=== PATIENT | male | born 1975 | race Caucasian/White ===

== ENCOUNTER 2022-04-09 14:44 | Outpatient (REF) | payer MEDICAID, SELFPAY ==
[2022-04-09 19:31] LABS: HCT 43.6 % (40.0-50.0); HGB 14.5 g/dL (13.5-17.5); MCH 28.8 pg (27.0-33.0); MCHC 33.3 % (32.0-36.0); MCV 87 fL (80-95); MPV 10.9 fL (8.0-11.0); Platelet Count 273 10^3/uL (130-400); RBC 5.04 10^6/uL (4.36-5.78); RDW 12.9 % (11.8-14.1); RDW-SD 40.8 fL; WBC 6.81 10^3/uL (4.4-10.8)
[2022-04-09 19:43] LABS: ALT 30 U/L (16-63); AST 20 U/L (15-37); Albumin 4.4 g/dL (3.4-5.0); Alkaline Phosphatase 68 U/L (46-116); Bilirubin, Direct 0.1 mg/dL (0.0-0.2); Bilirubin, Total 0.3 mg/dL (0.2-1.0); Total Protein 7.3 g/dL (6.4-8.2)
[2022-04-10 09:28] LABS: Hemoglobin A1C 5.8 % (<5.7)
== END 2022-04-09 14:45 | disposition home or self-care (01) ==
LOC: NCHCN 14:44
PROVIDERS: PCP Nurse Practitioner Family; Visit Provider Nurse Practitioner Family
DX: R10.11 Right upper quadrant pain (principal); K76.0 Fatty (change of) liver, not elsewhere classified; R73.09 Other abnormal glucose
CPT/HCPCS: 80076; 85027; 83036

== ENCOUNTER 2023-12-31 11:33 | Outpatient (REF) | payer MEDICAID, SELFPAY ==
[2023-12-31 14:49] LABS: HCT 44.5 % (40.0-50.0); HGB 14.5 g/dL (13.5-17.5); MCH 28.3 pg (27.0-33.0); MCHC 32.6 % (32.0-36.0); MCV 87 fL (80-95); MPV 10.3 fL (8.0-11.0); Platelet Count 245 10^3/uL (130-400); RBC 5.12 10^6/uL (4.36-5.78); RDW-SD 41.2 fL; WBC 6.01 10^3/uL (4.4-10.8)
[2023-12-31 15:11] LABS: Hemoglobin A1C 5.7 % (<5.7)
[2023-12-31 15:28] LABS: ALT 33 U/L (16-63); AST 21 U/L (15-37); Albumin 4.1 g/dL (3.4-5.0); Alkaline Phosphatase 70 U/L (46-116); Anion Gap 7.2 mmol/L (3-11); BUN 15 mg/dL (7-18); CO2 26.8 mmol/L (21.0-32.0); CREATININE 0.9 mg/dL (0.70-1.30); Calcium 8.9 mg/dL (8.5-10.1); Calculated LDL 162 mg/dL (<100); Chloride 108 mmol/L (98-107); Cholesterol 224 mg/dL (<200); Estimated GFR 106.01 (mL/min/1.73m2); Glucose 101 mg/dL (74-106); HDL Cholesterol 48 mg/dL (40-60); Potassium 4.2 mmol/L (3.5-5.1); Sodium 142 mmol/L (136-145); TSH 1.56 uIU/Ml (0.36-3.74); Total Protein 7.5 g/dL (6.4-8.2); Triglyceride 73 mg/dL (<150)
== END 2023-12-31 11:34 | disposition home or self-care (01) ==
LOC: NCHCN 11:33
PROVIDERS: PCP Nurse Practitioner Family; Visit Provider Family Medicine
DX: R73.03 Prediabetes (principal); K76.0 Fatty (change of) liver, not elsewhere classified; E78.5 Hyperlipidemia, unspecified; R61 Generalized hyperhidrosis
CPT/HCPCS: 80053; 80061; 85027; 83036; 84443

== ENCOUNTER 2024-12-31 08:39 | Outpatient (REF) | payer OTHER, MEDICAID, SELFPAY ==
[2024-12-31 16:10] LABS: Hemoglobin A1C 5.7 % (<5.7)
[2024-12-31 16:36] LABS: ALT 37 U/L (16-63); AST 22 U/L (15-37); Albumin 4.3 g/dL (3.4-5.0); Alkaline Phosphatase 72 U/L (46-116); Anion Gap 7.7 mmol/L (3-11); BUN 19 mg/dL (7-18); Bilirubin, Total 0.6 mg/dL (0.2-1.0); CO2 28.3 mmol/L (21.0-32.0); Calcium 9.2 mg/dL (8.5-10.1); Calculated LDL 161 mg/dL (<100); Chloride 106 mmol/L (98-107); Cholesterol 221 mg/dL (<200); Estimated GFR 92.84 (mL/min/1.73m2); Glucose 106 mg/dL (74-106); HDL Cholesterol 48 mg/dL (>or=40); Potassium 4.3 mmol/L (3.5-5.1); Sodium 142 mmol/L (136-145); Total Protein 7.3 g/dL (6.4-8.2); Triglyceride 63 mg/dL (<150)
== END 2024-12-31 08:40 | disposition home or self-care (01) ==
LOC: NCHCN 08:39
PROVIDERS: Visit Provider Family Medicine
DX: R73.03 Prediabetes (principal); E78.5 Hyperlipidemia, unspecified; K76.0 Fatty (change of) liver, not elsewhere classified
CPT/HCPCS: 80053; 80061; 83036